=== PATIENT | female | born 1975 | race Caucasian/White ===

== ENCOUNTER 2023-03-30 08:05 | Day surgery (SDC) | payer OTHER ==
[2023-03-27 15:29] VITALS: BMI 29.7
[~2023-03-30 08:05] MED LIST: LIDOCAINE 1% (10MG/ML) FOR IV START INTRADERMA PRN
[2023-03-30] MEDS: LACTATED RINGERS 1,000 ML IV SCH ×2 (08:34→08:53)
[2023-03-30 08:40] VITALS: TEMP 96.6
[2023-03-30] MEDS ORDERED: PROPOFOL 10 MG/ML 20 ML VIAL IV ONE (08:56)
--- NOTE | 2023-03-30 09:16 | P.PCN ---
Date of Procedure: 03/30/23 Procedure(s) Performed: BRIEF HISTORY: Patient is a 48-year-old pleasant white female scheduled for an elective colonoscopy as a part of screening for colon cancer. Her mother was diagnosed at age 69 colon cancer. PROCEDURE PERFORMED: Colonoscopy with biopsy. PREOPERATIVE DIAGNOSIS: Screening for colon cancer and family history of colon cancer. IV sedation per Anesthesia. PROCEDURE: After informed consent was obtained, the patient, was brought into the endoscopy unit. IV sedation was administered by Anesthesia under continuous monitoring. Digital rectal examination was normal. Initially the Olympus CF-160 flexible video colonoscope was then inserted in the rectum, gradually advanced into the cecum without any difficulty. Careful examination was performed as the scope was gradually being withdrawn. Ileocecal valve and the appendiceal orifice were visualized and appeared normal. Prep was excellent. Mucosa of the cecum, ascending colon, appeared normal. In the transverse colon there was a 2 mm, 3 mm and 5 mm polyp REMOVED by cold biopsy. Rest of the transverse colon, descending colon, sigmoid colon, and rectum appeared normal. Retroflexion was performed in the rectum and no lesions were seen. The patient tolerated the procedure well. IMPRESSION: 2 mm, 3 mm and 5 mm transverse colon polyp status post cold biopsy Rest of the colon appeared normal RECOMMENDATIONS: Findings of this examination were discussed with the patient as a family.. He was advised to follow with the biopsy results and have a repeat colonoscopy in 5 years because of history of colon cancer
[2023-03-30 10:01] VITALS: BP 130/86; PULSE 61; RESP 18
== END 2023-03-30 09:54 | disposition home or self-care (01) ==
LOC: ORWHC2ENDO 08:05
PROVIDERS: ATTEND Internal Medicine Gastroenterology
DX: Z12.11 Encounter for screening for malignant neoplasm of colon (principal); D12.3 Benign neoplasm of transverse colon; F17.200 Nicotine dependence, unspecified, uncomplicated; Z79.899 Other long term (current) drug therapy; Z90.710 Acquired absence of both cervix and uterus; Z85.3 Personal history of malignant neoplasm of breast; Z80.0 Family history of malignant neoplasm of digestive organs
CPT/HCPCS: 45380; J2704; 88305